=== PATIENT | male | born 1995 | race Hispanic/Latino ===

== ENCOUNTER 2017-07-26 21:09 | Emergency (ER) | payer OTHER ==
[~2017-07-26] VITALS: Ht 175.3 cm; Wt 77.1 kg
[~2017-07-26 21:09] MED LIST: DOXYCYCLINE HY100 MG PO
[2017-07-26] MEDS ORDERED: BACTRIM DS TAB1 EACH PO (23:23)
[2017-07-26] MEDS ORDERED: KEFLEX500 MG PO (23:23)
== END 2017-07-26 23:51 | disposition home or self-care (01) ==
LOC: ED 21:09
DX: T81.4XXA Infection following a procedure, initial encounter (principal); L03.115 Cellulitis of right lower limb; Z87.891 Personal history of nicotine dependence
CPT/HCPCS: 73590; 76882; 80048; 85025; 99284